=== PATIENT | female | born 1940 | race Native Hawaiian/Other Pacific Islander ===

== ENCOUNTER 2018-04-22 20:18 | Outpatient (CLI) | payer OTHER, BC ==
[2018-04-23] MEDS ORDERED: LEVO0.0723 PO ×2 (00:55)
[2018-04-23] MEDS ORDERED: AMLODIPINE BESYLATE PO ×2 (00:56)
[2018-04-23] MEDS ORDERED: TRAMADOL HYDROC50 MG PO ×2 (00:57)
[2018-04-23] MEDS ORDERED: ASA LOW DOSE81 MG PO ×2 (02:24)
== END 2018-04-22 20:37 | disposition short-term general hospital (02) ==
LOC: AMB 20:18
DX: M25.572 Pain in left ankle and joints of left foot (principal); M25.571 Pain in right ankle and joints of right foot; M79.89 Other specified soft tissue disorders; M54.2 Cervicalgia
CPT/HCPCS: A0425; A0427

== ENCOUNTER 2018-04-22 20:45 | Inpatient (IN) | payer OTHER, BC ==
[~2018-04-22] VITALS: Ht 160 cm; Wt 64.9 kg
[2018-04-22 21:00] VITALS: BP 111/62; TEMP 98.1
[2018-04-22 21:04] LABS: PLATELET COUNT 527 K/uL (152-353)
[2018-04-22 21:16] LABS: POTASSIUM 3.7 mmol/L (3.6-5.2)
[2018-04-23] VITALS (7 sets, daily range): BP systolic 113–139; BP diastolic 50–61; TEMP 97.9–98.7; Ht 160 cm; Wt 64.9 kg
[2018-04-23] MEDS ORDERED: LEVO0.0723 PO ×2 (00:55)
[2018-04-23] MEDS ORDERED: AMLODIPINE BESYLATE PO ×2 (00:56)
[2018-04-23] MEDS ORDERED: TRAMADOL HYDROC50 MG PO ×2 (00:57)
[2018-04-23] MEDS ORDERED: ASA LOW DOSE81 MG PO ×2 (02:24)
[2018-04-24] VITALS (7 sets, daily range): BP systolic 110–145; BP diastolic 55–65; TEMP 97.4–98.1
[2018-04-24 11:38] LABS: PLATELET COUNT 641 K/uL (152-353)
[2018-04-24 11:59] LABS: POTASSIUM 3.4 mmol/L (3.6-5.2)
[2018-04-25 03:55] VITALS: BP 133/63; TEMP 97.6
[2018-04-25 08:05] VITALS: BP 116/62; TEMP 98.1
[2018-04-25 08:34] LABS: PLATELET COUNT 564 K/uL (152-353)
[2018-04-25 09:10] LABS: POTASSIUM 3.9 mmol/L (3.6-5.2)
[2018-04-25] MEDS ORDERED: Z-PAK PO ×2 (10:34)
[2018-04-25 12:03] VITALS: BP 136/49; TEMP 98.2
== END 2018-04-25 14:20 | disposition home or self-care (01) | DRG 603 ==
LOC: ED 20:45 → MED/SURG 23:00
DX: L03.115 Cellulitis of right lower limb (principal); I10 Essential (primary) hypertension; E03.8 Other specified hypothyroidism; M15.8 Other polyosteoarthritis
CPT/HCPCS: 36415; 80053; 81000; 84443; 84550; 85027; 86430; 87040; 99283; J0696; J1650; J1815; J2920; J3411; J3490; J7120